=== PATIENT | female | born 1960 | race Two or more races ===

== ENCOUNTER 2019-09-08 01:36 | Emergency (ER) | payer OTHER ==
[~2019-09-08] VITALS: Ht 165.1 cm; Wt 77.1 kg
[2019-09-08] MEDS ORDERED: SODIUM CHLORIDE 0.9% 1,000 ML IV ONE (02:15)
[2019-09-08 03:17] LABS: Basophils # (auto) 0.1 uL; Basophils % (auto) 0.4 % (0.0-2.0); Eosinophils # (auto) 0.1 uL; Eosinophils % (auto) 0.8 % (0.0-7.0); Hematocrit 38.6 % (36.0-46.0); Hemoglobin 12.7 g/dL (12.2-16.2); Lymphocytes # (auto) 1.7 uL; Lymphocytes % (auto) 11.2 % (10.0-50.0); Mean Corpuscular Hemoglobin 28.4 pg (28.0-32.0); Mean Corpuscular Hgb Conc. 32.8 g/dL (32.0-36.0); Mean Corpuscular Volume 86.8 fL (80.0-100.0); Monocytes # (auto) 1.2 uL; Monocytes % (auto) 7.5 % (0.0-12.0); Neutrophils # (auto) 12.4 uL; Neutrophils % (auto) 80.1 % (37.0-80.0); Platelet Count (auto) 422 10^3/uL (140-450); Red Blood Cells 4.45 10^6/uL (4.0-5.20); Red Cell Distribution Width 14.9 % (11.8-14.3); White Blood Cell 15.5 10^3/uL (4.4-10.8)
[2019-09-08 03:23] LABS: BUN/Creatinine Ratio 17.3; Calcium 8.5 mg/dL (8.5-10.1)
[2019-09-08 03:26] LABS: Bilirubin, Total 0.2 mg/dL (0.2-1.0); Total Protein 7.2 g/dL (6.4-8.2)
[2019-09-08 03:33] LABS: Potassium 3.7 mmol/L (3.5-5.1)
[2019-09-08 04:03] LABS: Urine Bacteria MOD /hpf (None Seen); Urine Blood 2+ /uL (Negative); Urine Mucus FEW (None Seen); Urine Specific Gravity 1.027 (1.001-1.035); Urine WBC 934 /hpf (0 - 5); Urine WBC Clumps PRESENT /hpf (None Seen)
[2019-09-08] MEDS ORDERED: IOHEXOL 300 MG/ML 100ML BOTTLE IJ ONE (04:04)
[2019-09-08] MEDS ORDERED: HYDROcodone-ACET 10/325MG TAB PO ONE (06:00)
[2019-09-08] MEDS ORDERED: cefTRIAXone 1GM/50ML D5W 50 ML IV ONE (07:00)
[2019-09-08 09:23] VITALS: BP 103/49
== END 2019-09-08 09:33 | disposition home or self-care (01) ==
LOC: EDBD 01:36 → ER 01:39
DX: N39.0 Urinary tract infection, site not specified (principal); C53.9 Malignant neoplasm of cervix uteri, unspecified; N76.0 Acute vaginitis; J45.909 Unspecified asthma, uncomplicated; R11.2 Nausea with vomiting, unspecified; R19.7 Diarrhea, unspecified
CPT/HCPCS: 36415; 74177; 80053; 81001; 83605; 85025; 87040; 87086; 96361; 96365; 99285; J0696; J7030; Q9967

== ENCOUNTER → 2020-01-12 | Day surgery (SDC) | payer OTHER ==
[2020-01-10 16:10] LABS: Basophils # (auto) 0.1 10 ^3/uL (0-0.2); Eosinophils # (auto) 0.4 10 ^3/uL (0-0.8); Monocytes # (auto) 0.9 10 ^3/uL (0-1.3)
[2020-01-10 16:12] LABS: Basophils % (auto) 0.9 % (0.0-2.0); Eosinophils % (auto) 2.3 % (0.0-7.0); Hemoglobin 11.3 g/dL (12.2-16.2); Lymphocytes # (auto) 2.8 10 ^3/uL (0.4-5.4); Lymphocytes % (auto) 18.7 % (10.0-50.0); Mean Corpuscular Hemoglobin 26.5 pg (28.0-32.0); Mean Corpuscular Hgb Conc. 31.3 g/dL (32.0-36.0); Mean Corpuscular Volume 84.6 fL (80.0-100.0); Monocytes % (auto) 5.7 % (0.0-12.0); Neutrophils # (auto) 10.8 10 ^3/uL (1.6-8.6); Neutrophils % (auto) 72.4 % (37.0-80.0); Red Blood Cells 4.25 10^6/uL (4.0-5.20)
[2020-01-10 16:25] LABS: INR 0.99 (0.9-1.15); Partial Thromboplastin Time 31.3 sec (23.64-32.05)
[2020-01-10 16:27] LABS: Albumin 2.6 g/dL (3.4-5.0); Calcium 9.1 mg/dL (8.5-10.1)
[2020-01-10 16:28] LABS: Platelet Count (auto) 782 10^3/uL (140-450)
[2020-01-10 16:29] LABS: BUN/Creatinine Ratio 10.2
[2020-01-10 16:32] LABS: Bilirubin, Total 0.2 mg/dL (0.2-1.0); Total Protein 7.4 g/dL (6.4-8.2)
[~2020-01-12] VITALS: Ht 157.5 cm; Wt 61.2 kg
[~2020-01-12] MED LIST: CARI-277 PO; HYDR-531 PO; HYDR1CAP PO; LEVO50TA7 PO; MIDAZOLAM HCL 1MG/1ML-2 ML VIAL ONE; OMEP20TA PO; ONDANSETRON HCL 4 MG/2 ML VIAL ONE; PROPOFOL 10 MG/ML 20 ML IV ONE; SODIUM CHLORIDE LOCK 10 ML ONE; ceFAZolin 1GM/50ML 50 ML IV ONE; fentaNYL CITRATE 100 MCG/2 ML VL ONE
[2020-01-12 10:47] LABS: Urine Bacteria FEW /hpf (None Seen); Urine Blood 2+ /uL (Negative); Urine Mucus FEW (None Seen); Urine Specific Gravity 1.015 (1.001-1.035); Urine Sperm PRESENT /hpf (None Seen); Urine WBC 508 /hpf (0 - 5); Urine WBC Clumps PRESENT /hpf (None Seen)
[2020-01-12 16:24] VITALS: BP 107/71
== END | disposition home or self-care (01) ==
LOC: SUR 09:34
PROVIDERS: ATTEND Urology
DX: R33.9 Retention of urine, unspecified (principal); K21.9 Gastro-esophageal reflux disease without esophagitis; E07.9 Disorder of thyroid, unspecified; G89.29 Other chronic pain; Z11.59 Encounter for screening for other viral diseases; Z87.440 Personal history of urinary (tract) infections; Z87.898 Personal history of other specified conditions; Z85.44 Personal history of malignant neoplasm of other female genital organs
CPT/HCPCS: 36415; 52000; 76705; 80053; 81001; 85025; 85610; 85730; C1769; J0690; J2250; J2405; J2704; J3010; J7030; U0003

== ENCOUNTER 2020-04-02 19:31 | Emergency (ER) | payer MEDICAID ==
[~2020-04-02] VITALS: Ht 162.6 cm; Wt 49.9 kg
[~2020-04-02 19:31] MED LIST changes: -MIDAZOLAM HCL 1MG/1ML-2 ML VIAL ONE; -ONDANSETRON HCL 4 MG/2 ML VIAL ONE; -PROPOFOL 10 MG/ML 20 ML IV ONE; -SODIUM CHLORIDE LOCK 10 ML ONE; -ceFAZolin 1GM/50ML 50 ML IV ONE; -fentaNYL CITRATE 100 MCG/2 ML VL ONE
[2020-04-02] MEDS ORDERED: IOHEXOL 300 MG/ML 100ML BOTTLE IJ ONE (20:40)
[2020-04-02 20:50] LABS: Eosinophils # (auto) 0.1 10 ^3/uL (0-0.8); Hemoglobin 9.2 g/dL (12.2-16.2); Monocytes # (auto) 1.3 10 ^3/uL (0-1.3); Red Cell Distribution Width 16.5 % (11.8-14.3)
[2020-04-02 20:53] LABS: Basophils # (auto) 0.2 10 ^3/uL (0-0.2); Basophils % (auto) 1.2 % (0.0-2.0); Eosinophils % (auto) 0.6 % (0.0-7.0); Hematocrit 28.7 % (36.0-46.0); Lymphocytes # (auto) 2.3 10 ^3/uL (0.4-5.4); Lymphocytes % (auto) 11.4 % (10.0-50.0); Mean Corpuscular Hemoglobin 25.6 pg (28.0-32.0); Mean Corpuscular Hgb Conc. 32.1 g/dL (32.0-36.0); Mean Corpuscular Volume 79.8 fL (80.0-100.0); Monocytes % (auto) 6.7 % (0.0-12.0); Neutrophils % (auto) 80.1 % (37.0-80.0)
[2020-04-02 20:58] LABS: INR 1.03 (0.9-1.15)
[2020-04-02 21:03] LABS: Platelet Count (auto) 842 10^3/uL (140-450)
[2020-04-02 21:10] LABS: Albumin 1.8 g/dL (3.4-5.0); BUN/Creatinine Ratio 17.5; Calcium 9.5 mg/dL (8.5-10.1); Potassium 3.7 mmol/L (3.5-5.1)
[2020-04-02 21:13] LABS: Bilirubin, Total 0.2 mg/dL (0.2-1.0); Total Protein 6.5 g/dL (6.4-8.2)
[2020-04-02] MEDS ORDERED: SODIUM CHLORIDE 0.9% 1,000 ML IV ONE (22:30)
[2020-04-02] MEDS ORDERED: PIPERACILLIN-TAZOB 3.375GM 100 ML IV ONE (22:45)
[2020-04-02] MEDS ORDERED: VANCOMYCIN 1GM/250ML 250 ML IV ONE (22:45)
[2020-04-02] MEDS ORDERED: fentaNYL CITRATE 100 MCG/2 ML VL IV ONE (22:45)
[2020-04-02] MEDS ORDERED: ONDANSETRON HCL 4 MG/2 ML VIAL IV ONE (22:45)
[2020-04-02] MEDS ORDERED: diphenhdrAMINE HCL 50 MG/1 ML VL IV ONE (22:45)
[2020-04-03] MEDS ORDERED: fentaNYL CITRATE 100 MCG/2 ML VL IV ONE ×2 (03:00→06:00)
[2020-04-03 05:44] VITALS: BP 111/58
== END 2020-04-03 06:09 | disposition short-term general hospital (02) ==
LOC: ER 19:31 → EDBD 19:31 → ER 04-03 06:09
DX: C19 Malignant neoplasm of rectosigmoid junction (principal); C55 Malignant neoplasm of uterus, part unspecified; M72.6 Necrotizing fasciitis; J45.909 Unspecified asthma, uncomplicated; Z88.1 Allergy status to other antibiotic agents
CPT/HCPCS: 36415; 74177; 80053; 83605; 83880; 85025; 85610; 85730; 87040; 93005; 96365; 96366; 96375; 96376; 99285; J1200; J2405; J2543; J3010; Q9967